=== PATIENT | female | born 1980 | race Two or more races ===

== ENCOUNTER 2023-12-14 14:06 | Emergency (ER) | payer OTHER ==
[~2023-12-14] VITALS: Ht 12.7 cm; Wt 59.0 kg
[2023-12-14 15:44] VITALS: BP 132/77; PULSE 67; RESP 17; TEMP 99; O2SAT 98
[2023-12-14] MEDS ORDERED: METH4PAK PO (15:58)
[2023-12-14] MEDS ORDERED: TRIA0.02 TOP (15:58)
[2023-12-14] MEDS: methylPREDNISolone SOD SUCC 125 MG/2 ML VL IV ONE (16:13)
== END 2023-12-14 16:14 | disposition home or self-care (01) ==
LOC: EDBD 14:06 → ER 14:06
DX: T63.481A Toxic effect of venom of other arthropod, accidental (unintentional), initial encounter (principal); Z91.030 Bee allergy status; Y92.89 Other specified places as the place of occurrence of the external cause
CPT/HCPCS: 96374; 99283; J2919